=== PATIENT | female | born 1980 | race Caucasian/White ===

== ENCOUNTER 2025-02-24 13:31 | Outpatient (CLI) | payer OTHER | END 2025-02-24 13:32 | disposition home or self-care (01) | LOC: SCSMRI 13:31 | PROVIDERS: ATTEND Internal Medicine | DX: M47.22 Other spondylosis with radiculopathy, cervical region (principal); M50.11 Cervical disc disorder with radiculopathy, high cervical region; M50.121 Cervical disc disorder at C4-C5 level with radiculopathy; M25.78 Osteophyte, vertebrae; M50.122 Cervical disc disorder at C5-C6 level with radiculopathy; M50.123 Cervical disc disorder at C6-C7 level with radiculopathy; M50.13 Cervical disc disorder with radiculopathy, cervicothoracic region; M48.02 Spinal stenosis, cervical region | CPT/HCPCS: 72141 ==